=== PATIENT | female | born 1945 | race Hispanic/Latino ===

== ENCOUNTER 2019-11-15 01:40 | Emergency (ER) | payer MEDICARE, OTHER ==
[~2019-11-15] VITALS: Ht 152.4 cm; Wt 93.0 kg
--- OUTSIDE RECORDS SUMMARY | 2019-11-15 01:44 | XMS REPORT ---
Author Author [facility] Address Unknown Phone Unavailable Care Team Providers Care Compliance Paralegal Name Role Phone Unavailable Unavailable Problems This patient has no known problems. Allergies, Adverse Reactions, Alerts This patient has no known allergies or adverse reactions. Medications This patient has no known medications.
[2019-11-15] MEDS: ONDANSETRON HCL INJ 2MG/ML 2ML 2 MG/ML VIAL IV STA (02:51)
[2019-11-15] MEDS: SODIUM CHLORIDE 0.9% 1000ML 1,000 ML IV SCH (02:52)
[2019-11-15] MEDS: LOPERAMIDE HCL 2 MG CAP PO ONE (02:52)
[2019-11-15 05:18] VITALS: BP 153/72
== END 2019-11-15 05:00 | disposition home or self-care (01) ==
LOC: FSED 01:40
DX: R11.2 Nausea with vomiting, unspecified (principal); A08.4 Viral intestinal infection, unspecified; K52.9 Noninfective gastroenteritis and colitis, unspecified; E86.9 Volume depletion, unspecified
CPT/HCPCS: 80053; 81003; 85025; 96374; 99283; J2405